=== PATIENT | male | born 1935 ===

== ENCOUNTER 2020-11-13 05:47 | Day surgery (SDC) | payer OTHER ==
[~2020-11-13 05:47] MED LIST: ALTOPREV40 MG PO; NOVOLOG MI100 UNIT/1 SQ
== END 2020-11-13 14:30 | disposition home or self-care (01) ==
LOC: CIR.AMB 05:47
PROVIDERS: ATTEND Urology
DX: N47.6 Balanoposthitis (principal); L72.0 Epidermal cyst; Z20.822 Contact with and (suspected) exposure to COVID-19